=== PATIENT | male | born 1975 | race Caucasian/White ===

== ENCOUNTER 2017-06-30 23:07 | Observation (INO) | payer OTHER ==
--- NOTE | ~2017-06-30 | HEMODYNAMI ---
PATIENT:RAMÓN HARLEY MEDICAL RECORD: [id number] : 77 LOCATION:[address] [id number] ADMISSION DATE: 06/30/17 Generatedon:07/01/201710:54 Patient name: RAMÓN HARLEY Patient #: [id number] SSN : : 1975 Date of study: 07/01/2017 Page: Of Hemodynamic Procedure Report Patient Data Patient Demographics Procedure consent was obtained First Name: RAMÓN Gender: Male Last Name: CRICEKT : 1975 Middle Initial: JORDAN Age: 41 year(s) Patient #: [id number] Race: Unknown Additional ID: [id number] Contact details [address]: [address] [place] [address] State: [place] City: [place] Zip code: [address] Past Medical History Allergies: No known allergies Admission Admission Data Admission Date: 06/30/2017 Admission Time: 23:47 Room #: D.2122 Procedure Procedure Types Cath Procedure Diagnostic Procedure Cardioversion Procedure Description Procedure Date Procedure Date: 07/01/2017 Procedure Start Time: 10:16 Procedure Staff Name Function Juan M Gonsalez MD Performing Physician Sam Francis RN Nurse Geovani Barr MD Additional personnel Anastasiya العلي RT Monitor Zack Robbins RT Integration Specialist Procedure Medications Medication Administration Route Dosage 0.9% NaCl I.V. 100 ml/hr Oxygen NC 2 l/min Refer to Anesthesia Notes for Sedation Medications Hemodynamics Rest Heart Rate: 94 (bpm) Snapshots Pre Cath Intra NCS Post Cath Vital Signs Time Heart Resp SPO2 etCO2 NIBP (mmHg) Rhythm Pain Sedation Rate (ipm) (%) (mmHg) Status Level (bpm) 10:36:36 100 31 98 36.1 146/86(106) NSR 0 (11) 10(A) , No pain 10:41:19 80 16 100 32.3 110/83(97) NSR 0 (11) 10(A) , No pain 10:46:00 109 4 99 21 108/71(85) NSR 0 (11) 10(A) , No pain 10:50:41 74 5 97 33.8 108/65(79) NSR 0 (11) 10(A) , No pain Medications Time Medication Route Dose Verified Delivered Reason Notes Effective ness by by 10:41:08 0.9% NaCl I.V. 100 Sam Sam Per ml/hr Tito Francis physician RN RN 10:41:46 Oxygen NC 2 Sam Sam Per l/min Tito Francis physician RN RN 10:43:23 Refer to Geovani Olivo for Anesthesia Cortney Barr sedation Notes for MD DELEON Sedation Medications Procedure Log Time Note 10:21:56 Anastasiya العلي RT(R) sent for patient. Start room use. 10:21:57 Time tracking: Regular hours 10:22:01 Plan of Care:Hemodynamics will remain stable., Cardiac rhythm will remain stable., Comfort level will be maintained., Respiratory function will remain adequate., Patient/ family verbilizes understanding of procedure., Procedure tolerated without complication., Recovers from procedure without complications.. 10:35:35 Patient received from PCU to CCL 1 Alert and oriented. Tansferred to table in Supine position. 10:35:36 Warm blankets applied, and zoey hugger turned on for patient comfort. 10:35:36 Correct patient and procedure confirmed by team. 10:35:38 Signed procedure consent form obtained from patient. 10:35:38 ECG and BP/O2 sat monitors applied to patient. 10:35:39 Vital chart was started 10:35:43 Rhythm: atrial fibrillation 10:35:44 Full Disclosure recording started 10:35:51 H&P Date Dictated: 06/30/2017 Within 30 days and on chart.. 10:35:52 Pre-procedure instructions explained to patient. 10:35:53 Pre-op teaching completed and patient verbalized understanding. 10:35:55 Family in patients room. 10:35:58 Patient NPO since Midnight. 10:36:08 Patient allergic to No known allergies 10:36:10 Is the patient allergic to Iodine/contrast media? No. 10:36:13 Is patient on blood thinner?Yes 10:36:18 ACC The patient was administered the following blood thiners within the last 24 hours: ACCLovenox 10:36:22 Patient diabetic? No. 10:36:26 Previous problem with sedation/anesthesia? No ? 10:36:30 Snore? Yes 10:36:32 Sleep apnea? Yes 10:36:33 Deviated septum? No 10:36:33 Opens mouth fully? Yes 10:36:34 Sticks out tongue? Yes 10:36:38 Airway obstruction? No ? 10:36:41 Dentures? No ? 10:36:47 Patient pain scale 0/10 ?. 10:36:53 IV patent on arrival in right antecubital with 0.9% NaCl at [facility]. 10:36:57 Lab results completed and on chart. 10:37:04 Alarms reviewed by RGénesis Ernst 10:37:17 DR Barr present and monitoring patient for TIVA. 10:37:19 Quick combo pads placed on patients chest and back. 10:37:27 Quick Combo opened to sterile field. 10:37:52 Physician paged 10:40:42 Baseline sample Acquired. 10:41:08 0.9% NaCl 100 ml/hr I.V. was administered by Sam Francis RN; Per physician; 10:41:46 Oxygen 2 l/min NC was administered by Sam Francis RN; Per physician; 10:42:36 Final Timeout: patient, procedure, and site verified with staff and physician. All members of the team are in agreement. 10:42:45 Physical assessment completed. ASA score P 2 - A patient with mild systemic disease as per Juan M Gonsalez MD. 10:42:49 Sedation plan: TIVA Propofol 10:43:23 Refer to Anesthesia Notes for Sedation Medications was administered by Geovani Barr MD; for sedation; 10:45:57 Defibrillator synced and charged to 250 joules 10:46:05 Shock delivered. 10:46:16 Patient cardioverted to sinus rhythm . 10:46:22 Procedure ended.(Physican Out) 10:51:29 Post procedure rhythm: sinus rhythm 10:51:31 Post procedure instruction explained to patient.Patient verbalizes understanding. 10:51:31 Patient needs reinforcement of post procedure teaching. 10:51:38 See physician's report for complete and final results. 10:51:49 Procedure and supply charges have been captured, reviewed, submitted and are correct. 10:51:55 Vital chart was stopped 10:51:59 Report given to PCU. 10:52:02 Patient transfered to PCU with Bed. 10:52:13 End room use (Document Last) Device Usage Item Manufacture Quantity Catalog Hospital Part Current Minimal Lot# / Name Number Charge Number Shruthi corrales# Code [employer] 1 [id number] Combo Signature Audit [place] Stage Time Signature Unsigned Intra-Procedure 07/01/2017 Anastasiya 10:54:44 AM Counts RT(R) Signatures Monitor : Anastasiya Signature : Counts RT Date : Time : [address] [address]
[2017-06-30 23:30] LABS: BASOPHILS 0.4 % (0-2); EOSINOPHILS 1.7 % (0-7); HEMATOCRIT 53.2 % (42.0-54.0); HEMOGLOBIN 19.5 g/dL (13.5-17.5); IMMATURE GRANULOCYTES 0.4 % (0-5); LYMPHOCYTES 32.5 % (15-50); MCH 31.1 pg (26.0-34.0); MCHC 36.7 g/dL (31.0-37.0); MCV 84.7 fL (80.0-100.0); MEAN PLATELET VOLUME 10.1 fL (7.4-10.4); PLATELET COUNT 257 10x3/uL (130-400); RBC 6.28 10x6/uL (4.20-6.10); RDW 12.7 % (11.5-14.5)
[2017-06-30 23:45] LABS: ALKALINE PHOSPHATASE 97 U/L (46-116); ALT (SGPT) 37 U/L (10-68); BILIRUBIN - TOTAL 1.17 mg/dL (0.2-1.3); CALC OSMOLALITY 274 mosm/kg (275-300); CALCIUM 9.8 mg/dL (8.5-10.1); CHLORIDE - SERUM 101 mmol/L (98-107); CREATININE - SERUM 1.1 mg/dL (0.6-1.3); GLUCOSE 109 mg/dL (74-106); POTASSIUM - SERUM 3.1 mmol/L (3.5-5.1); PROTEIN - SERUM 7.6 g/dL (6.4-8.2); SODIUM 138 mmol/L (136-145); UREA NITROGEN 8 mg/dL (7-18); eGFR NON AFRICAN AMERICAN 79 mL/min (90-120)
[2017-07-01 00:04] LABS: CKMB 0.8 U/L (0.0-3.6); CREATINE KINASE 99 UL (21-232); MAGNESIUM - SERUM 1.8 mg/dL (1.8-2.4); PRO BNP 45 pg/mL (0-125); THYROID STIMULATING HORMONE 3.26 uIU/mL (0.36-3.74); TROPONIN-I < 0.017 ng/mL (0.000-0.060)
[2017-07-01 01:44] VITALS: BP 124/87; BMI 22.4
[2017-07-01 04:00] VITALS: BP 105/64
[2017-07-01 07:16] VITALS: BP 126/54
[2017-07-01] MEDS ORDERED: NEXIUM40 MG PO (08:30)
[2017-07-01] MEDS ORDERED: TOPROL XL50 MG (08:31)
[2017-07-01] MEDS ORDERED: EFFEXOR50 MG PO (08:32)
--- NOTE | 2017-07-01 09:10 | NUR ---
RESTS WITH EYES CLOSED. AT BS. CALL LIGHT IN REACH. WILL CONT. PLAN OF CARE.
[2017-07-01] MEDS ORDERED: EFFEXOR XR75 MG PO (09:21)
[2017-07-01 09:31] VITALS: BMI 22.3
--- NOTE | 2017-07-01 10:49 | NUR ---
TO VEHICLE SERVICE AGENT PER BED
--- NOTE | 2017-07-01 10:50 | HP ---
PATIENT: RAMÓN HARLEY MEDICAL RECORD: [id number] ACCOUNT: [id number] LOCATION:D. D.2121 : 77 ADMISSION DATE: 06/30/17 HISTORY AND PHYSICAL EXAMINATION DIAGNOSIS: Atrial fibrillation, new onset. HISTORY OF PRESENT ILLNESS: This is a gentleman with a past history of only PVCs and palpitations, who late felt more of a sustained dysrhythmia. He presented Monday night, found to be in atrial fibrillation. He remains in atrial fibrillation. He was placed on a Cardizem drip and sotalol and he became bradycardic with pauses. The Cardizem drip was taken off, still in atrial fibrillation. He has not had any chest pain or chest discomfort. Troponin is normal. EKG is with no ischemic changes. PHYSICAL EXAMINATION: GENERAL APPEARANCE: Well-nourished, well-developed, appears stated age. Level of distress, comfortable. PSYCHIATRIC: Mental status, alert, normal affect. Orientation, oriented to time, place and person. EYES: Lids and conjunctiva, noninjected. No discharge, no pallor. ENT: Lips, teeth, gums, normal dentition. Oropharynx, no cyanosis, no pallor. NECK: Carotid arteries, bilateral normal upstroke, no bruits, no thrills. JUGULAR VEINS: No jugular venous pressure or distention. CERVICAL LYMPH NODES: Nontender, nonenlarged. THYROID: Not enlarged. Nontender. No nodules. LUNGS: Respiratory effort, unlabored. CHEST: Normal curvature. No thoracic deformity. No chest wall tenderness. Percussion, resonant. Auscultation, clear. No wheezes, no rales, no rhonchi. CARDIOVASCULAR: Precordial exam, nondisplaced. No heaves or pericardial thrills. Rate and rhythm, regular. Heart sounds, normal S1, normal S2. No S3, no gallop, no rub. Systolic murmur, not heard. Diastolic murmur, not heard. EXTREMITIES: No cyanosis, no edema. Peripheral pulses, full and equal in all extremities, except as noted. No bruits appreciated. ABDOMEN: Soft, nondistended. Normal aorta. No bruit. Nontender. No masses. Liver, nontender, no hepatomegaly. Spleen, nontender, no splenomegaly. MUSCULOSKELETAL: No joint tenderness. No joint swelling. No erythema. NEUROLOGICAL: Normal gait, normal strength, normal tone. SKIN: Warm and dry. OVERALL IMPRESSION: Atrial fibrillation, less than 72 hours. We will give him a dose of Lovenox, proceed with DC cardioversion. Further care depends results with the cardioversion. TRANSINT:[id number] Voice Confirmation ID: [id number] DOCUMENT ID: [id number] HISTORY AND PHYSICAL [id number] RAMÓN HARLEY JEFFREY MD at 1050 CC: [id number] DICTATION DATE: 07/01/17925 SURVEILLANCE SENSOR OPERATOR: 07/01/1745 ADM IN [facility] [address] [id number]
[2017-07-01 11:04] VITALS: BP 123/75
--- NOTE | 2017-07-01 11:15 | NUR ---
RETURN FROM DIRECTOR OF COUNSELING. MONITOR SHOWS SR.
[2017-07-01] MEDS ORDERED: BETAPACE 80 MG80 MG PO (13:40)
--- NOTE | 2017-07-01 13:48 | NUR ---
DC GIVEN TO PT AND DR. HARLEY.
--- NOTE | 2017-07-01 13:49 | NUR ---
DC HOME PER PERSONAL CAR
--- NOTE | 2017-07-04 11:30 | PRO ---
PATIENT:RAMÓN HARLEY MEDICAL RECORD: [id number] : 77 LOCATION:D.M2 D.2122 ADMISSION DATE: 06/30/17 PROCEDURE PERFORMED BY: IAN ZAVALA MD DATE OF PROCEDURE: 07/01/2017 PROCEDURE: DC cardioversion. INDICATION: Atrial fibrillation. PROCEDURE IN DETAIL: IV conscious sedation was performed per anesthesia. Continuous heart rate, O2 saturation, blood pressure monitoring were all undertaken, all of which remained stable. He received 1 shock at 250 joules restoring sinus rhythm. OVERALL IMPRESSION: Successful DC cardioversion from atrial fibrillation to sinus rhythm. TRANSINT:[id number] Voice Confirmation ID: [id number] DOCUMENT ID: [id number] IAN ZAVALA MD at 1130 CC: [id number] DICTATION DATE: 07/01/17 1048 OUTSIDE UPHOLSTERER: 07/01/17 1140 DIS IN 07/01/17 [facility] [address] [place] [address]
--- NOTE | 2017-07-04 16:42 | DS ---
PATIENT:RAMÓN KENNY :77 MEDICAL RECORD: [id number] DISCHARGE SUMMARY ADMISSION DATE: 06/30/17 DISCHARGE DATE: 07/01/17 DIAGNOSES: 1. Atrial fibrillation. 2. Status post DC cardioversion. HOSPITAL COURSE: Mr. Kenny presents with palpitations less than 72 hours, found to be in atrial fibrillation, underwent DC cardioversion and was discharged home with the addition of sotalol and Xarelto to his medical regimen. We will follow up in 1 month. TRANSINT:[id number] Voice Confirmation ID: [id number] DOCUMENT ID: [id number] IAN ZAVALA MD at 1642 CC: [id number] DICTATION DATE: 07/01/17 1048 SHREDDED FILLER CIGAR MAKER MACHINE: 07/01/17 1156 DIS IN 07/01/17 [address] [place] [address]
== END 2017-07-01 13:49 | disposition home or self-care (01) ==
LOC: OBSVTIME → D.ER 23:07 → OBSVTIME 23:47 → D.M2 23:47 → OBSVTIME 07-01 00:11 → D.ER 07-01 00:11 → D.M2 07-01 00:11
PROVIDERS: Family Medicine; ADMIT Internal Medicine Interventional Cardiology
DX: I48.91 Unspecified atrial fibrillation (principal)

== ENCOUNTER 2018-05-20 14:01 | Emergency (ER) | payer MEDICARE ==
[~2018-05-20] VITALS: Ht 182.9 cm; Wt 100.0 kg
[~2018-05-20 14:01] MED LIST: BETAPACE 80 MG80 MG PO; EFFEXOR XR75 MG PO; EFFEXOR50 MG PO; NEXIUM40 MG PO; TOPROL XL50 MG
[2018-05-20 14:06] VITALS: Ht 182.9 cm; Wt 100.0 kg
[2018-05-20] MEDS ORDERED: NORCO 7.5/325 T1 TA1 PO (16:16)
[2018-05-20 16:40] VITALS: BP 154/94
== END 2018-05-20 16:42 | disposition home or self-care (01) ==
LOC: D.ER 14:01
DX: S63.276A Dislocation of unspecified interphalangeal joint of right little finger, initial encounter (principal); V86.56XA Driver of dirt bike or motor/cross bike injured in nontraffic accident, initial encounter; Y93.89 Activity, other specified; Y92.89 Other specified places as the place of occurrence of the external cause; I48.91 Unspecified atrial fibrillation; F41.9 Anxiety disorder, unspecified

== ENCOUNTER → 2019-07-08 14:30 | Outpatient (CLI) | payer OTHER ==
[2018-05-20 14:06] VITALS: BMI 29.9
[~2019-07-08 14:30] MED LIST changes: +NORCO 7.5/325 T1 TA1 PO
== END | disposition home or self-care (01) ==
LOC: D.HCCARDIO 14:30
PROVIDERS: ATTEND Internal Medicine Cardiovascular Disease
DX: R00.2 Palpitations (principal)